=== PATIENT | male | born 1950 | race American Indian/Alaskan Native ===

== ENCOUNTER 2024-08-29 14:22 | Outpatient (RCR) | payer MEDICARE, BC, SELFPAY | END 2024-08-29 23:59 | disposition home or self-care (01) | LOC: RPT 14:22 | PROVIDERS: ATTENDING PHYSICIAN Orthopaedic Surgery | DX: M17.0 Bilateral primary osteoarthritis of knee (principal); M62.81 Muscle weakness (generalized); Z73.6 Limitation of activities due to disability; R26.89 Other abnormalities of gait and mobility; M48.02 Spinal stenosis, cervical region; Z86.12 Personal history of poliomyelitis | CPT/HCPCS: 97110; 97162; 97535 ==

== ENCOUNTER 2024-09-17 12:00 | Outpatient (RCR) | payer MEDICARE, BC, SELFPAY | END 2024-09-17 23:59 | disposition home or self-care (01) | LOC: RPT 12:00 | PROVIDERS: ATTENDING PHYSICIAN Orthopaedic Surgery | DX: M17.11 Unilateral primary osteoarthritis, right knee (principal); M17.0 Bilateral primary osteoarthritis of knee (principal); M17.12 Unilateral primary osteoarthritis, left knee; M62.81 Muscle weakness (generalized); R26.89 Other abnormalities of gait and mobility; Z73.6 Limitation of activities due to disability; M48.02 Spinal stenosis, cervical region; Z86.12 Personal history of poliomyelitis | CPT/HCPCS: 97110 ==

== ENCOUNTER 2024-09-30 20:34 | Inpatient (IN) | payer MEDICARE, BC, SELFPAY ==
[2024-09-30 17:04] VITALS: BP 166/86
--- NOTE | 2024-09-30 19:21 | ED.GENMED ---
History of Present Illness
General
Chief Complaint: Fall
Source: patient
Exam Limitations: none
Time Seen by Provider: 09/30/24 18:50
Nursing documentation reviewed up to this point in time: agreed with
History of Present Illness
History of Present Illness:
74-year-old male presenting to the emergency department today with concerns of a ground-level fall after tripping over a curb hitting his right hip unable to walk since. Denies hitting his head not on blood thinners no additional injuries no
numbness or weakness distally.
Review of Systems
Review of Systems
Allergies reviewed?: Yes
All Other Systems: ROS reviewed and negative except as documented in HPI and ROS
Phy Exam
Physical Exam
Physical Exam:
GENERAL: Alert , in no apparent distress
EYE: pupils equal and reactive
NECK: Supple, no significant adenopathy.
ENT: o/p clr, mmm.
CARDIAC: Regular rate and rhythm .
LUNGS: Clear breath sounds bilaterally, no acute respiratory distress, no wheezes/rales/rhonchi
ABDOMEN: Soft, without focal tenderness, no r/g, no cvat
NEUROLOGICAL: Alert and oriented, no focal neuro deficits
SKIN: Warm and dry, skin intact.
MUSCULOSKELETAL: Unable to move at the right hip otherwise no signs of trauma moving the left lower extremity normally and moving the upper extremities normally
PSYCH: Normal and appropriate interaction.
Course
Orders/Labs/Results
Orders:
Orders
09/30/24 16:54
Hip, Right 2-3 Views [CR Hip - RT w/wo Pel 2-3 Vw*] Urgent
Comment:
Reason For Exam: fall, right hip pain
Include a pelvis x-ray?: Yes
09/30/24 19:14
BMP [Basic Metabolic Panel] Urgent
CBC/With Diff [Complete Blood Count/With Diff] Urgent
Vital Signs
Initial and Last Documented VS:
Initial Vital Signs
Temp Pulse Resp BP Pulse Ox
98.3 F 65 18 166/86 97
09/30/24 17:04 09/30/24 17:04 09/30/24 17:04 09/30/24 17:04 09/30/24 17:04
Last Documented Vital Signs
Temp Pulse Resp BP Pulse Ox
98.3 F 65 18 166/86 97
09/30/24 17:04 09/30/24 17:04 09/30/24 17:04 09/30/24 17:04 09/30/24 17:04
MDM/Problems Addressed
MDM/Problems Addressed:
74-year-old male presenting to the emergency department today with concerns of right-sided hip discomfort after ground-level fall after tripping over a curb. Patient is found to have a hip fracture here. Case discussed with Ortho plan for surgery
tomorrow. Otherwise stable here no head trauma not on blood thinners.
*Critical Care Note
Total Time (30-74mins, 75-104mins- exclusive of procedures): Not Applicable
ED Attending Note
-
Portions of this chart may have been created with voice recognition software.� Occasional wrong word or��sound alike� substitutions may have occurred due to the inherent limitations of voice recognition software.
Discharge Plan
Departure
Patient Disposition: Admit
Date of Disposition: 09/30/24
Time of Disposition: 19:23
Admit to: Med/Surg
Admit to doctor: Torie
Presentation/result/management discussed w/ accepting MD/DO: Hospitalist
Patient with high blood pressure during this ER visit?: No
Condition: Good
Covid-19: Not Applicable
Discharge Problem:
Closed fracture of right hip
Referrals:
NONE,* [Family Provider] -
Interventions
Interventions:
*Risk Screen - Suicide Last Done: 09/30/24 17:07
*ED COVID-19 Vaccine History Last Done: 09/30/24 17:07
Discharge Date and Time
Print Language: KAZAKH
[2024-09-30 19:35] VITALS: BMI 25.8
--- NOTE | 2024-09-30 19:37 | HPS.HSE ---
Family Physician
-
Family Physician: * NONE
Chief Complaint
-
Mechanical trip and fall with right hip pain
History of Present Illness
74 year old male complaining he tripped over a curb falling to the ground landing on his right hip and has been unable to walk in the hip. He denies hitting her head . He reports his called the police who helped him up into his car where his
drove him here to the hospital for evaluation. He denies headache, sore throat, fever, chills, chest pain, palpitations, cough, shortness of breath, abdominal pain, nausea, vomiting, diarrhea, urinary symptoms. He has past medical history of
cervical stenosis repair and lumbar disc replacement, BPH
Medical History
Past Medical History
Past Medical History: Reports Other
Additional Past Medical History:
cervical stenosis repair and lumbar disc replacement
BPH
Past Surgical History: Reports Other
Additional Past Surgical History:
cervical stenosis repair and lumbar disc replacement
Social History
Tobacco: Non-smoker
Alcohol: None
Drug: None
Personal:
Living: With Family ([place])
Employment: Retired
Family History
Family History: Not pertinent
Allergies / Home Medications
Allergies reflects when Allergies were last updated in [employer].
Home Medications with original date entered in [employer]
Allergy/Medication List:
Home Medications
No Meds [No Current Medications] 09/30/24
Review of Systems
-
History Source: Patient and Family ( [place] at bedside)
A 12 point ROS was completed and negative except as noted: Yes
Constitutional: Denies Fatigue or Chills
EENT: Denies Sore Throat or Runny Nose
Respiratory: Denies Cough or Trouble Breathing
Cardiac: Denies Chest Pain, Diaphoresis, Palpitations or Syncope
Abdomen/GI: Denies Abdominal Pain, Nausea, Vomiting, Diarrhea, Constipated, Bloody Stools or Black Stools
: Denies Dysuria, Frequency, Flank Pain, Incontinence, Difficulty Voiding or Urgency
Musculoskeletal: Reports Joint Pain (Right hip pain); Denies Joint Swelling or Edema
Skin: Denies Itching or Rash
Neurological: Denies Dizzy or Headache
Endocrine: Reports No Symptoms
Hematologic/Lymphatic: Reports No Symptoms
Psych: Reports Calm
Physical Exam
Vital Signs
Vital Signs
Temp Pulse Resp BP Pulse Ox
98.3 F 65 18 166/86 97
09/30/24 17:04 09/30/24 17:04 09/30/24 17:04 09/30/24 17:04 09/30/24 17:04
Physical Exam
General: Conversant and Pain; No Fever or Chills
HEENT: NormoCephalic, Anicteric, Moist mucous membranes, PERRLA, [place] Conjunctivae and No Ptosis
Respiratory: Clear; No Wheezes, Rales or Rhonchi
Cardiac: S1/S2 and Regular Rhythm; No Murmur, Rub, Gallop or Peripheral Edema
GI: Soft, Non Tender, Non Distended, Normal Bowel Sounds and No Hepatosplenomegaly
Rectal: Deferred by Provider
Genito-urinary: Deferred by me
Musculoskeletal: No Clubbing, No Cyanosis, No Edema and Other (Tenderness right hip near area of fracture)
Skin: Warm and Dry; No Rash
Neuro: AO x 3, No Motor Deficits, Nonfocal/grossly intact, Cranial Nerves Intact and No Sensory Deficits; No Slurred Speech, Facial Droop, Tremors or Sedated
Psych: Calm
Impression/Plan
-
Impression/plan:
Admit to MedSurg
#Mechanical fall with right femoral neck fracture with severe osteoarthritis of the right hip
- N.p.o. after midnight
- Pain control, bowel regimen
- Ice as needed
- Ortho aware
- Type and screen In a.m.
-Check EKG
- Follow CBC, BMP
Hip x-ray right with pelvis
1. ACUTE NONDISPLACED TRANSCERVICAL FRACTURE of the RIGHT FEMORAL NECK.
2. Severe osteoarthritis in the right hip.
3. Moderate osteoarthritis in the left hip.
4. Intervertebral disc prosthesis in L5/S1.
5. Previous vertebroplasty of L4.
#BPH
-Bladder scan protocol
# Back and neck disc herniation
#History of cervical stenosis repair and lumbar disc replacement
DVT prophylaxis
SCDs
Full code
[2024-09-30 20:07] LABS: % Basophils 0.4 % (0-2); % Eosinophils 0.4 % (0-6); % Immature Granulocytes 0.6 % (0-0.5); % Lymphocytes 6.8 % (20.5-51.1); % Monocytes 5.1 % (1.7-9.3); % Neutrophils 86.7 % (42.2-75.2); Absolute Basophils 0.1 10^3/uL (0-0.2); Absolute Eosinophils 0.1 10^3/uL (0-0.7); Absolute Immature Granulocytes 0.1 10^3/uL (0-0.05); Absolute Lymphocytes 1.1 10^3/uL (1.2-3.4); Absolute Monocytes 0.8 10^3/uL (0.1-0.6); Absolute Neutrophils 14.2 10^3/uL (1.4-6.5); Hematocrit 41.2 % (39.0-52.0); Hemoglobin 13.2 g/dL (13.0-18.0); Mean Corpuscular Volume 62.3 fL (80.0-94.0); Nucleated Red Blood Cells % 0 % (-); Platelet Count 164 10^3/uL (130-400); Red Blood Cell Count 6.61 10^6/uL (4.70-6.10); Red Cell Dist. Width 18.7 % (11.5-14.5); White Blood Cell Count 16.3 10^3/uL (4.8-10.8)
[2024-09-30 20:32] LABS: Blood Urea Nitrogen 18 mg/dl (9-20); Calcium 9.2 mg/dl (8.4-10.2); Carbon Dioxide 23 mmol/L (22-30); Chloride 105 mmol/L (98-107); Estimated Creatinine Clearance 92 ml/min; Glucose 90 mg/dl (70-99); Potassium 4.6 mmol/L (3.5-5.1); Sodium 141 mmol/L (135-145); eGFR > 60.00
--- NOTE | 2024-09-30 20:41 | W.PN.UPDATE ---
Update Note
Progress Note Update
Patient seen in conjunction with GANG SAW OPERATOR. I agree with the findings on history and physical. I concur with the assessment and plan.
Briefly, this is a right healthy 74-year-old who seems to have had a prior history of BPH previously on office dosing but currently not on any medications presents to the emergency department following a slip and fall. He has a fracture of the
femoral neck on the right.
Currently pain-free and generally well-appearing. Hemodynamically stable
In the emergency department he was afebrile, blood pressure was 160/86 with a pulse of 65 and was satting at 7% on room air. CBC notable for white count of 16 but otherwise unremarkable stop electrolytes BUN/creatinine were all normal. X-ray
findings as stated above.
ECG pending
Assessment and plan
Right femoral neck fracture�
-admit to [facility]
- Ortho aware, plan for OR in a.m.
- N.p.o., no thinners
- Maintenance fluids
- DVT prophylaxis with SCDs, start anticoagulation after procedures
- Pain control
- Fracture protocol for urinary retention
- PT evaluation
CODE STATUS�full code
--- NOTE | 2024-09-30 21:30 | PTCARENOTE ---
Pt is a 74 year old male arrived on 2S at 21:23. Pr tripped over a curb falling to the ground landing on his right hip and has been unable to walk in the hip. He denies hitting her head : PMH of cervical stenosis repair and lumbar disc replacement,
BPH R Hip Xray shows - ACUTE NONDISPLACED TRANSCERVICAL FRACTURE of the RIGHT FEMORAL NECK, Severe osteoarthritis in the right hip, Moderate osteoarthritis in the left hip., Intervertebral disc prosthesis in L5/S1, Previous vertebroplasty of L4. Pt
AOX3, denies pain, bed in a low position, call light in reach, care ongoing.
[2024-09-30 21:50] VITALS: BP 161/101
[2024-09-30] MEDS: SENOKOT 17.2 MG PO (22:40)
[2024-09-30] MEDS: COLACE 100 MG PO (22:40)
[2024-09-30 22:45] VITALS: BP 189/99
[2024-09-30 23:15] VITALS: BP 121/73
[2024-10-01] VITALS (9 sets, daily range): BP systolic 111–133; BP diastolic 65–80
--- NOTE | 2024-10-01 05:20 | CON.ORTHO ---
Consultation
-
Date/Time Consultation Requested: September 28/2049
Date/Time Consultation Performed: September 28/0700
Requesting Provider: KONG Swanson
Performing Provider: Marcelina for [facility]
Reason for Consultation: Right Hip Fracture
Consultation - Orthopedics
History
History of Present Illness:
74 y/o male with a PMH of polio with right drop foot sequela (with use of AFO), chronic neck/low back pain (L5-S1 replacement and L4 vertebroplasty), and BPH who presented to the ED yesterday after tripping over a curb, subsequently landing on his
right hip, resulting in an inability to ambulate. He denies a headstrike or any prodrome. No blood thinners He reports his called the police who helped him up into his car where his drove him here to the [facility]. He denies headache, sore
throat, fever, chills, chest pain, palpitations, cough, shortness of breath. He was noted to have a right femoral neck fracture radiographically and we have been requested in consultation with regards to this injury. Of note, he ambulates, at
baseline, without assistive device. Of note, prior to the fall he had minimal right hip discomfort
Past Medical History:
Polio
Right drop (from polio)
cervical/lubar pain
BPH
Knee OA
Past Surgical History:
cervical stenosis surgery
Lumbar surgery (L5-S1 replacement; L4 vertebroplasty)
Social History:
Tobacco: Non-smoker
Alcohol: None
Drug: None
Personal:
Employment: Retired
Family History:
Family History: Not pertinent
ROS:
12 point negative except those mentioned in the HPi
Allergies / Home Medications
Allergy/AdvReac Type Severity Reaction Status Date / Time
No Known Allergies Allergy Unverified 09/30/24 22:20
�Medication �Instructions �Recorded
No Meds [No Current Medications] 09/30/24
Vital Signs / Lab Results
Temp Pulse Resp BP Pulse Ox
99.6 F 89 18 121/73 98
09/30/24 21:50 09/30/24 23:15 09/30/24 21:50 09/30/24 23:15 09/30/24 21:50
09/30/24 19:44
09/30/24 19:44
Assessment / Plan
PE: Tmax 99.6. At bedrest. Right hip skin intact. RLE short and ER. No significant edema. Generalized pain over the right hip capsule and laterally. Deferred ROM due to known fracture. + logroll RLE. Knee nontender. Minimal ankle motion. EHL intact.
calf soft, nontender. DNVI RLE
Xrays: Nondisplaced RIGHT femoral neck fracture in the face of moderate hip OA
Impression: MARY
Plan: At length bedside discussion with the patient yields his understanding to the nature of his RIGHT hip fracture and our proposed treatment recommendations. We discussed all operative and nonoperative options, including the RBAs of each form of
management. Radiographically he has a moderate amount of right hip OA. Prior to the fall with some left hip discomfort noted. At baseline, even in the face of his polio and right foot drop, he ambulates without assistive device, just AFO. We
discussed the role of total hip replacement in this situation, and given his age and his underlying, baseline, hip OA it would be reasonable to proceed with CARLOS. The other option would be a hemiarthroplasty, but again, with his underlying hip OA,
and his age, it is quite possible that a follow-up surgery in the form of CARLOS would be needed at some point down the line. We discussed what the postop and rehab course would look like with hemiarthroplasty versus CARLOS and will appreciate CM
assistance with disposition. after discussing at length it makes the most sense to him, and I would agree, that a CARLOS would be reasonable. Dr. Zabala is scheduled in the OR today, and it might be possible, given his and ORs availability to proceed
after his scheduled cases later this afternoon with a RIGHT endoprosthesis vs. CARLOS. will discuss with attending hospitalist, but preliminarily it appears as though he is optimized for surgery. For now, that will be the tentative plan. OR is aware.
Surgical (Endoprosthesis vs. CARLOS) and blood consents have been signed by the patient and placed to his chart. Operative site marked by the surgical team. patient is and will remain NPO. T&S ordered. ABX and irrigation products OCTOR. Will follow
along for now.
This patient was seen in tandem with Dr. Carlton Zabala
[2024-10-01] MEDS: SENOKOT 17.2 MG PO ×2 (08:57→19:56)
[2024-10-01] MEDS: COLACE 100 MG PO ×2 (08:58→19:57)
--- NOTE | 2024-10-01 10:14 | W.PN.HOSP.TC ---
Today's Communication/Plan
-
Await surgery
Assessment / Plan
Assessment / Plan
Gen-AAOx3, NAD
HEENT-NC, AT, anicteric, clear oral mm
Neck-supple
CV-reg, no M, +S1/S2
Lungs-clear B/L
Abd-soft, NT, ND
Ext-no edema
Musculoskeletal-no cyanosis, clubbing
Skin-warm and dry
Neuro-grossly non-focal
Psych-calm, cooperative
Acute traumatic right femoral neck fracture -due to fall, underlying osteoporosis. Currently n.p.o., awaiting surgery today. Medically stable.
Postoperative PT/OT consult. Denies history of fracture in the past.
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
Cervical spine stenosis
BPH
Full code
Anticipated Discharge: > 48 hours
Subjective/Interval History
-
Date of Service: October 01, 2024
Patient seen and examined. No complaints.
Objective Data
-
Vital Signs:
Vital Signs
Temp Pulse Resp BP Pulse Ox
98.6 F 81 16 133/71 98
10/01/24 07:20 10/01/24 07:20 10/01/24 07:20 10/01/24 07:20 10/01/24 09:00
I&O
09/30/24 10/01/24 10/02/24
06:59 06:59 06:59
Intake Total 240 / 240
Output Total 525 / 525
Balance -285 / -285
Review of Systems
-
History Source: Patient
All other systems: Reviewed and negative
--- NOTE | 2024-10-01 11:14 | CM ---
CM reviewed medical records. Patient confirmed demographics. Patient lives independently with in a two story home. Patient denied history of VN< SNF or DME. Patient is active with his PCP. Patient uses [facility] on [address] [facility] for medication services.
CM discussed discharge options. CM advised that PT will work with patient post operatively and will assist with making a determination for SNF vs Home. Patient would be agreeable to SNF if 'it's a good one'.
PLAN: SNF vs. Home with VN pending post operative course.
[2024-10-01] MEDS: ROXICODONE 5 MG PO (17:34)
--- NOTE | 2024-10-01 17:45 | PTCARENOTE ---
pt received from PACU to room 2108 at 1745. Right hip mepilex surgical dressing clean and dry, neurovascular checks WNL. pt oriented to post op plan of care, ice pack in place. family at bedside. pt endorses no pain at present time. care ongoing.
[2024-10-01] MEDS: ASPIRIN 325 MG PO (17:46)
[2024-10-01] MEDS: BACTROBAN 2% OINTMENT 1 APPLIC NASAL (19:54)
[2024-10-01] MEDS: ANCEF 5 IV (21:19)
[2024-10-02] VITALS (7 sets, daily range): BP systolic 108–151; BP diastolic 64–73; PULSE 80–84; O2SAT 97–98
[2024-10-02] MEDS: ANCEF 5 IV (05:21)
[2024-10-02] MEDS: ROXICODONE 5 MG PO ×2 (05:28→09:30)
--- NOTE | 2024-10-02 06:07 | W.PN.ORTHO ---
Today's Communication / Plan
-
74-year-old male POD #1 Right Total Hip Arthroplasty for Right Femoral Neck Fracture 10/01/[address] Zabala.
- Appreciate the Hospitalist team, continue Tx.
- Dispo planning, appreciate CM. Per CM, SNF vs. Home with VN pending post-operative course.
- Continue WBAT B/L LEs on walker/assistance.
- PT/OT, THP's.
- ASA 325mg daily x 4 weeks for DVT ppx.
- Dressings to remain 7-10 days.
- Ice/elevation/pain control per primary team.
- Peña out at 2 weeks (rehab/office).
- If peña out at rehab, outpatient Ortho in 4 weeks.
- Orthopedic surgery will continue to follow along.
Assessment
.
Distal Motor Intact: Yes
Dressing:
Clean, dry and intact. Dressing in place right hip.
Assessment:
POD#1 Right Total Hip Arthroplasty
Overall doing/feeling well
Calf soft, nontender to palpation
Able to plantarflex and dorsiflex right ankle
Plan
.
Surgery / Date: R CARLOS 10/01/[address] Zabala
DVT Prophylaxis: Aspirin
Activity:
Out of bed. WBAT RLE on walker/assistance.
PT/OT, THPs.
Discharge Plan: Home w/ VN and SNF
Discharge Information:
Appreciate CM.
Subjective
.
.:
Patient resting comfortably. Denies any significant pain about his right hip this morning.
Vital Signs and Labs
.
Vital Signs and Labs:
Lab Results
09/30/24 19:44
09/30/24 19:44
Temp Pulse Resp BP Pulse Ox
98.1 F 77 16 108/72 99
10/02/24 03:00 10/02/24 03:00 10/02/24 03:00 10/02/24 03:00 10/02/24 03:00
Non-invasive Hgb result: 12.1
[2024-10-02 07:48] LABS: Hematocrit 30.8 % (39.0-52.0); Mean Corp Hgb Conc. 32.5 g/dL (33.0-37.0); Mean Corpuscular Hgb 20.1 pg (27.0-31.0); Mean Corpuscular Volume 61.8 fL (80.0-94.0); Platelet Count 162 10^3/uL (130-400); Red Blood Cell Count 4.98 10^6/uL (4.70-6.10); Red Cell Dist. Width 16.9 % (11.5-14.5); White Blood Cell Count 17.7 10^3/uL (4.8-10.8)
[2024-10-02] MEDS: COLACE 100 MG PO ×2 (08:57→20:35)
[2024-10-02] MEDS: ASPIRIN 325 MG PO (08:57)
[2024-10-02] MEDS: SENOKOT 17.2 MG PO ×2 (08:57→20:35)
[2024-10-02] MEDS: BACTROBAN 2% OINTMENT 1 APPLIC NASAL ×2 (08:58→20:35)
--- NOTE | 2024-10-02 10:42 | W.PN.HOSP.TC ---
Today's Communication/Plan
-
PT/OT
Assessment / Plan
Assessment / Plan
Gen-AAOx3, NAD
HEENT-NC, AT, anicteric, clear oral mm
Neck-supple
CV-reg, no M, +S1/S2
Lungs-clear B/L
Abd-soft, NT, ND
Ext-no edema
Musculoskeletal-no cyanosis, clubbing
Skin-warm and dry
Neuro-grossly non-focal
Psych-calm, cooperative
Acute traumatic right femoral neck fracture -due to fall, underlying osteoporosis. Stable after right total hip arthroplasty, 10/01. PT/OT. Aspirin for DVT prophylaxis per orthopedics. [place] out in 2 weeks in the office or in rehab per
orthopedics.
Acute postoperative anemia -suspect acute operative blood loss anemia. Hemoglobin 10. Hemodynamically stable. Monitor for now.
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
Cervical spine stenosis
Thalassemia minor
BPH
Full code
Dispo -patient prefers to go to SNF on discharge. Await PT/OT input.
Anticipated Discharge: Within 24 hours
Subjective/Interval History
-
Date of Service: October 02, 2024
Patient seen and examined. No pain. No complaints.
Objective Data
-
Labs:
Laboratory Results
10/02/24
06:56
WBC 17.7 H
Hgb 10.0 L D
Hct 30.8 L
Plt Count 162
Vital Signs:
Vital Signs
Temp Pulse Resp BP Pulse Ox
98.5 F 70 17 119/70 97
10/02/24 07:07 10/02/24 07:07 10/02/24 07:07 10/02/24 07:07 10/02/24 07:07
I&O
10/01/24 10/02/2425
06:59 06:59 06:59
Intake Total 240 / 240 340 / 340 660 / 660
Output Total 525 / 525 450 / 450
Balance -285 / -285 -110 / -110 660 / 660
Review of Systems
-
History Source: Patient
All other systems: Reviewed and negative
--- NOTE | 2024-10-02 10:44 | CM ---
CM following re: discharge planning.
Reviewed pt's chart, met with pt.
Pt is POD #1 Right Total Hip Arthroplasty for Right Femoral Neck Fracture, PT/OT to evaluate, continue supportive care.
Pt is aware he will need to go to rehab facility. pt preferred [facility] as number one choice. Plan B: preferred SNFs: [facility] or [facility]. A referral to above SNFs and [facility] made. Awaiting for determination.
Pt reports he was born and raised in [place], [place] with [place] years ago, resides in a tow house, has no children. Pt described himself as independent in all areas [employer].
D/C plan: Plan A: [facility]. Plan B: Preferred SNF.
CM will follow to assist pt with discharge to a preferred SNF.
--- NOTE | 2024-10-03 06:57 | W.PN.UPDATE ---
Update Note
Progress Note Update
Mr. Alvarez is POD2 following his right total hip arthroplasty for femoral neck fracture performed by Dr. Zabala. He is resting comfortably in bed this morning, and states his symptoms are well controlled at present. He has no questions or
concerns at this time.
Directed exam of the right lower extremity reveals surgical dressing clean, dry and intact. Expected post-operative edema. Thigh soft and compressible. Calf soft and nontender. Patient able to wiggle toes. Flicker of dorsi/plantar flexion consistent
with baseline foot drop/post-polio. Neurovascularly intact distally.
Hgb 10.0 yesterday.
74-year-old male POD #2 Right Total Hip Arthroplasty for Right Femoral Neck Fracture 10/01/[address] Zabala.
- Appreciate the Hospitalist team, continue Tx.
- Dispo planning, appreciate CM. Per CM, SNF vs. Home with VN pending post-operative course.
- Continue WBAT B/L LEs on walker/assistance. We appreciate the assistance of PT/OT, THP's.
- ASA 325mg daily x 4 weeks for DVT ppx.
- Dressings to remain 7-10 days. [place] out at 2 weeks (rehab/office). If peña out at rehab, outpatient Ortho in 4 weeks.
- Ice/elevation/pain control per primary team.
- Patient stable post-operatively from an orthopedic standpoint. Orthopedics will sign off for the time being. Please reach out with any additional orthopedic questions or concerns.
[2024-10-03 07:15] VITALS: BP 126/66
[2024-10-03] MEDS: ASPIRIN 325 MG PO (08:23)
[2024-10-03] MEDS: SENOKOT 17.2 MG PO (08:23)
[2024-10-03] MEDS: COLACE 100 MG PO (08:23)
[2024-10-03] MEDS: ROXICODONE 10 MG PO (08:26)
[2024-10-03 12:00] VITALS: BP 120/62; PULSE 92; O2SAT 97
--- NOTE | 2024-10-03 12:12 | W.PN.HOSP.TC ---
Today's Communication/Plan
-
Discharge
Assessment / Plan
Assessment / Plan
Gen-AAOx3, NAD
HEENT-NC, AT, anicteric, clear oral mm
Neck-supple
CV-reg, no M, +S1/S2
Lungs-clear B/L
Abd-soft, NT, ND
Ext-no edema
Musculoskeletal-no cyanosis, clubbing
Skin-warm and dry
Neuro-grossly non-focal
Psych-calm, cooperative
Acute traumatic right femoral neck fracture -due to fall, underlying osteoporosis. Stable after right total hip arthroplasty, 10/01. PT/OT. Aspirin for DVT prophylaxis per orthopedics. [place] out in 2 weeks in the office or in rehab per
orthopedics.
Acute postoperative anemia -suspect acute operative blood loss anemia. Hemoglobin 10. Hemodynamically stable. Monitor for now.
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
Cervical spine stenosis
Thalassemia minor
BPH
Full code
Dispo -medically stable for discharge to acute rehab. Case management aware.
Anticipated Discharge: Today
Subjective/Interval History
-
Date of Service: October 03, 2024
Patient seen and examined. No complaints.
Objective Data
-
Vital Signs:
Vital Signs
Temp Pulse Resp BP Pulse Ox
99.1 F 85 16 126/66 94
10/03/24 07:15 10/03/24 07:15 10/03/24 07:15 10/03/24 07:15 10/03/24 08:25
I&O
10/02/24 10/03/24 10/04/24
06:59 06:59 06:59
Intake Total 340 / 340 1140 / 1140
Output Total 450 / 450 920 / 920 75 / 75
Balance -110 / -110 220 / 220 -75 / -75
Review of Systems
-
History Source: Patient
All other systems: Reviewed and negative
--- NOTE | 2024-10-03 12:23 | W.DS.TRANS ---
DC Summary - [place]
-
Discharge Instructions:
Discharge Diagnosis/Procedures Right hip fracture, right total hip arthroplasty
, postoperative anemia
Diet Regular
Activity As tolerated,With assistance
Driving Restrictions No driving
Bathing Restrictions None
Blood Work CBC in 1 week
Instructions:
Stand-Alone Forms:
Changes to Home Medications: No
Discharge Medications:
DC Medications w/original date entered in [facility]
aspirin 325 mg tablet 325 mg PO DAILY #0 tabs 10/03/24
docusate sodium 100 mg capsule 100 mg PO BID #0 caps 10/03/24
oxycodone 5 mg tablet 5 mg PO Q4HPRN PRN severe pain #8 tabs 10/03/24
Home Medication Changes
Pending Results: No
--- NOTE | 2024-10-03 12:38 | CM ---
Addendum entered by Kalpesh Sanchez 10/03/24 16:13:
supervisor typesetting time 17:30. Both pt, his spouse, as well as [facility] coordinator are aware of discharge time.
Addendum entered by Kalpesh Sanchez 10/03/24 13:58:
[facility] coordinator confirmed that [facility] has a bed available and pt is accepted for admission today.
Discharge order noted. Pt is aware, expressed his agreement. IMM reviewed, placed on chart, pt has a copy.
arranged transportation BLS, mushroom picker time 17:30. [facility] .
[facility] nursing report: [phone]
Discharge instructions fax: [phone]
D/c plan: [facility]
Original Note:
CM following re: discharge planning.
Reviewed pt's chart, met with pt.
CM spoke to [facility] coordinator and she confirmed that [facility] has no bed and [facility] location and [place] location offered to the pt.
CM discussed it with the pt and pt preferred [place] location. Requested pt's clinical faxed to [facility] and [phone]. Awaiting for confirmation on bed availability.
D/c plan: [facility]. Awaiting for confirmation of a bed availability.
[2024-10-03 15:47] VITALS: BP 127/69
[2024-10-03] MEDS: ROXICODONE 5 MG PO (16:53)
== END 2024-10-03 17:50 | DRG 522 ==
LOC: 2 SOUTH 20:34
PROVIDERS: Physician Assistant; Student in an Organized Health Care Education/Training Program; ADMITTING PHYSICIAN Internal Medicine; ATTENDING PHYSICIAN Hospitalist; EMERGENCY PHYSICIAN Emergency Medicine; OTHER PHYSICIAN Specialist
PROC: 0SRB029 Replacement of Left Hip Joint with Metal on Polyethylene Synthetic Substitute, Cemented, Open Approach (ICD-10-PCS; 2024-10-01)
DX: M80.051A Age-related osteoporosis with current pathological fracture, right femur, initial encounter for fracture (principal); D62 Acute posthemorrhagic anemia; M16.11 Unilateral primary osteoarthritis, right hip; M16.12 Unilateral primary osteoarthritis, left hip; N40.0 Benign prostatic hyperplasia without lower urinary tract symptoms; M48.02 Spinal stenosis, cervical region; G14 Postpolio syndrome
CPT/HCPCS: 73502; 80048; 85025; 85027; 86850; 86900; 86901; 93005; 97163; 97167; 97530; 97535; 99285; C1713; C1776

== ENCOUNTER 2025-01-03 14:24 | Outpatient (RCR) | payer MEDICARE, BC, SELFPAY | END 2025-01-03 23:59 | disposition home or self-care (01) | LOC: RPT 14:24 | PROVIDERS: ATTENDING PHYSICIAN Specialist; FAMILY PHYSICIAN Family Medicine | DX: Z47.1 Aftercare following joint replacement surgery (principal); Z96.641 Presence of right artificial hip joint | CPT/HCPCS: 97110; 97112; 97116; 97162; 97530; 97535 ==

== ENCOUNTER → 2025-01-21 14:28 | Outpatient (REF) | payer MEDICARE, BC, SELFPAY | LOC: EMG 14:28 | PROVIDERS: ATTENDING PHYSICIAN Family Medicine | DX: R29.898 Other symptoms and signs involving the musculoskeletal system (principal); R20.0 Anesthesia of skin; M54.12 Radiculopathy, cervical region | CPT/HCPCS: 95886; 95911 ==

== ENCOUNTER 2025-01-31 14:43 | Outpatient (RCR) | payer MEDICARE, BC, SELFPAY | END 2025-01-31 23:59 | disposition home or self-care (01) | LOC: RPT 14:43 | PROVIDERS: ATTENDING PHYSICIAN Specialist; FAMILY PHYSICIAN Family Medicine | DX: Z47.1 Aftercare following joint replacement surgery (principal); R26.89 Other abnormalities of gait and mobility; Z96.641 Presence of right artificial hip joint; M25.552 Pain in left hip; Z73.6 Limitation of activities due to disability; M62.81 Muscle weakness (generalized); W10.1XXD Fall (on)(from) sidewalk curb, subsequent encounter; Z96.643 Presence of artificial hip joint, bilateral; Z86.12 Personal history of poliomyelitis | CPT/HCPCS: 97110; 97112; 97116; 97530 ==

== ENCOUNTER 2025-03-05 15:11 | Outpatient (RCR) | payer MEDICARE, BC, SELFPAY | END 2025-03-05 23:59 | disposition home or self-care (01) | LOC: RPT 15:11 | PROVIDERS: ATTENDING PHYSICIAN Specialist; FAMILY PHYSICIAN Family Medicine | DX: Z47.1 Aftercare following joint replacement surgery (principal); R26.89 Other abnormalities of gait and mobility; M25.552 Pain in left hip; Z73.6 Limitation of activities due to disability; M62.81 Muscle weakness (generalized); W10.1XXD Fall (on)(from) sidewalk curb, subsequent encounter; Z96.643 Presence of artificial hip joint, bilateral; Z86.12 Personal history of poliomyelitis; Z96.641 Presence of right artificial hip joint | CPT/HCPCS: 97110; 97112; 97530 ==

== ENCOUNTER 2025-04-02 09:19 | Outpatient (RCR) | payer MEDICARE, BC, SELFPAY | END 2025-04-02 23:59 | disposition home or self-care (01) | LOC: RPT 09:19 | PROVIDERS: ATTENDING PHYSICIAN Specialist; FAMILY PHYSICIAN Family Medicine | DX: Z47.1 Aftercare following joint replacement surgery (principal); R26.89 Other abnormalities of gait and mobility; M25.552 Pain in left hip; Z73.6 Limitation of activities due to disability; M62.81 Muscle weakness (generalized); W10.1XXD Fall (on)(from) sidewalk curb, subsequent encounter; Z96.643 Presence of artificial hip joint, bilateral; Z86.12 Personal history of poliomyelitis; Z96.641 Presence of right artificial hip joint | CPT/HCPCS: 97110; 97112; 97530 ==

== ENCOUNTER 2025-04-23 11:26 | Outpatient (RCR) | payer MEDICARE, BC, SELFPAY | END 2025-04-24 09:18 | disposition home or self-care (01) | LOC: RPT 11:26 | PROVIDERS: ATTENDING PHYSICIAN Specialist; FAMILY PHYSICIAN Family Medicine | DX: Z47.1 Aftercare following joint replacement surgery (principal); R26.89 Other abnormalities of gait and mobility; M25.552 Pain in left hip; Z73.6 Limitation of activities due to disability; M62.81 Muscle weakness (generalized); W10.1XXD Fall (on)(from) sidewalk curb, subsequent encounter; Z96.643 Presence of artificial hip joint, bilateral; Z86.12 Personal history of poliomyelitis; Z96.641 Presence of right artificial hip joint | CPT/HCPCS: 97110; 97112; 97530; 97535 ==